=== PATIENT | male | born 1985 | race Caucasian/White ===

== ENCOUNTER 2016-09-17 09:26 | Emergency (ER) | payer SELFPAY | END 2016-09-17 09:49 | disposition home or self-care (01) | LOC: ER 09:26 | DX: R20.9 Unspecified disturbances of skin sensation (principal); F41.0 Panic disorder [episodic paroxysmal anxiety]; Z88.8 Allergy status to other drugs, medicaments and biological substances | CPT/HCPCS: 99284 ==